=== PATIENT | male | born 1955 | race Caucasian/White ===

== ENCOUNTER 2017-11-05 01:56 | Inpatient (IN) | payer OTHER ==
[~2017-11-05] VITALS: Ht 172.7 cm; Wt 118.0 kg
[2017-11-05] MEDS ORDERED: LEVO25TA4 PO (02:49)
[2017-11-05] MEDS ORDERED: LISI40TA PO (02:49)
[2017-11-05] MEDS ORDERED: SYMB160A INH (02:49)
[2017-11-05] MEDS ORDERED: PRAV80TA2 PO (02:49)
[2017-11-05] MEDS ORDERED: ASPI-516 CHEW (02:49)
[2017-11-05] MEDS ORDERED: PANT40TA3 PO (02:49)
[2017-11-05] MEDS ORDERED: PLAV75TA29 PO (02:49)
[2017-11-05] MEDS ORDERED: BRIM0.155 EACH EYE (02:49)
[2017-11-05] MEDS ORDERED: DILT60TA33 PO (02:49)
[2017-11-05] MEDS ORDERED: TEGR200T PO (02:51)
[2017-11-05] MEDS ORDERED: FURO1TAB60 PO (02:51)
[2017-11-05 02:55] VITALS: BP 129/71; PULSE 75; RESP 20; TEMP 98.2; O2SAT 95
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
[2017-11-05 07:34] VITALS: BP 123/82; PULSE 85; RESP 16; TEMP 98.7; O2SAT 98
[2017-11-05] MEDS ORDERED: ACETAMINOPHEN 325 MG TAB PO PRN (08:00)
[2017-11-05] MEDS ORDERED: BENZTROPINE MESYLATE 2 MG/2 ML VIAL IM PRN (08:00)
[2017-11-05] MEDS ORDERED: BENZTROPINE MESYLATE 1 MG TAB PO PRN (08:00)
[2017-11-05] MEDS ORDERED: hydrOXYzine HCL 50 MG TAB PO PRN (08:00)
[2017-11-05] MEDS ORDERED: MAGNESIUM HYDROXIDE SUSP 30 ML CUP PO PRN (08:00)
[2017-11-05] MEDS ORDERED: NICOTINE 21 MG/24 HR PATCH T-DERMAL PRN (08:00)
[2017-11-05] MEDS ORDERED: ALUMINUM/MAGNESIUM/SIMETH 30 ML CUP PO PRN (08:00)
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
[2017-11-05] MEDS ORDERED: REMOVE OLD NICODERM (NICOTINE) PATCH T-DERMAL PRN (08:30)
[2017-11-05] MEDS: FUROSEMIDE 40 MG TAB PO SCH ×2 (09:00→09:13)
[2017-11-05] MEDS: DILTIAZEM HCL 60 MG TAB PO SCH ×2 (09:11→21:11)
[2017-11-05] MEDS: ASPIRIN 81 MG CHEW TAB CHEW SCH (09:11)
[2017-11-05] MEDS: LISINOPRIL 20 MG TAB PO SCH (09:11)
[2017-11-05] MEDS: BUDESONIDE-FORMOTEROL 160/4.5 MCG INHALER INH SCH ×2 (09:11→21:10)
[2017-11-05] MEDS: PANTOPRAZOLE SOD 40 MG DELAYED RELEASE TAB PO SCH (09:11)
[2017-11-05] MEDS: CLOPIDOGREL 75 MG TAB PO SCH (09:12)
[2017-11-05] MEDS: LEVOTHYROXINE SODIUM 25 MCG TAB PO SCH (09:12)
[2017-11-05] MEDS: carBAMazepine 200 MG TAB PO SCH ×2 (09:12→21:00)
[2017-11-05 11:40] VITALS: BP 125/83; PULSE 81; RESP 18; TEMP 97.6; O2SAT 97
--- NOTE | 2017-11-05 17:03 | HHI.HP ---
HPI Service [facility] Primary Care Physician No Primary Care Physician Admission Diagnosis BPAD Depressed Diagnoses: Chief Complaint: Depression Travel History International Travel<30 Days: No Contact w/Intl Traveler <30 Da: No Traveled to Known Affected Are: No History of Present Illness This is a 62-year-old male who was transferred from [facility] under Gutiérrez act secondary to depression. He has history of bipolar disorder and schizophrenia. He has been admitted to the psychiatry unit under the care of Dr. Peters who requested consultation to evaluate and manage multiple medical conditions. Patient presented to [facility] over the weekend because of shortness of breath. Outside records reviewed he was treated for CHF exacerbation last EF of 40%. He was diuresed. At this time, he feels better denies shortness of breath, palpitations and chest pain. Also history of coronary artery disease status post stent in August on antiplatelets and pravachol. Patient not on beta-johanna reason not clear to him but he has history of asthma which he felt was the reason for recent admission states he received steroids. He has hypertension controlled on CCB, GERD on PPI and hypothyroidism on Synthroid. All other systems reviewed negative Review of Systems Except as stated in HPI: all other systems reviewed are Neg Past Family Social History Past Medical History As previously mentioned Past Surgical History As previously mentioned Reported Medications Reported Meds & Active Scripts Active Reported Lasix (Furosemide) 40 Mg Tab 40 Mg PO DAILY Pantoprazole (Pantoprazole Sodium) 40 Mg Tab 40 Mg PO DAILY Pravastatin 80 Mg Tab 80 Mg PO HS Lisinopril 40 Mg Tab 40 Mg PO DAILY Levothyroxine (Levothyroxine Sodium) 25 Mcg Tab 25 Mcg PO DAILY Aspirin 81 Mg Chew 81 Mg CHEW DAILY Cardizem (Diltiazem HCl) 60 Mg Tab 60 Mg PO Q12HR Plavix (Clopidogrel Bisulfate) 75 Mg Tab 75 Mg PO DAILY Symbicort Inh (Budesonide/Formoterol Fumarate) 160-4.5 Mcg/Act Aero 2 Puff INH Q12HR Brimonidine Opth Drops (Brimonidine Tartrate) 0.15% Soln 1 Drop EACH EYE HS Allergies: Coded Allergies: penicillin V (Verified Allergy, Unknown, Anaphylaxis, 11/05/17) Family History No CAD Social History Does not smoke or drink abuses marijuana Physical Exam Vital Signs Vital Signs Date Time Temp Pulse Resp B/P (MAP) Pulse Ox O2 Delivery O2 Flow Rate FiO2 11/05/17 11:40 97.6 81 18 125/83 (97) 97 11/05/17 11:19 11/05/17 07:34 98.7 85 16 123/82 (96) 98 Room Air 11/05/17 02:55 98.2 75 20 129/71 (90) 95 Room Air Physical Exam GENERAL: This is a well-nourished, well-developed patient, in no apparent distress. SKIN: No rashes, ecchymoses or lesions. Cool and dry. HEAD: Atraumatic. Normocephalic. No temporal or scalp tenderness. EYES: Pupils equal round and reactive. Extraocular motions intact. No scleral icterus. No injection or drainage. ENT: Nose without bleeding, purulent drainage or septal hematoma. Throat without erythema, tonsillar hypertrophy or exudate. Uvula midline. Airway patent. NECK: Trachea midline. No JVD or lymphadenopathy. Supple, nontender, no meningeal signs. CARDIOVASCULAR: Regular rate and rhythm without murmurs, gallops, or rubs. RESPIRATORY: Clear to auscultation. Breath sounds equal bilaterally. No wheezes , rales, or rhonchi. GASTROINTESTINAL: Abdomen soft, non-tender, nondistended. No guarding. MUSCULOSKELETAL: Extremities without clubbing, cyanosis, or edema. No joint tenderness, effusion, or edema noted. No calf tenderness. Negative Homans sign bilaterally. NEUROLOGICAL: Awake and alert. Cranial nerves II through XII intact. Motor and sensory grossly within normal limits. Five out of 5 muscle strength in all muscle groups. Normal speech. Laboratory CBC unremarkable except for slight leukocytosis of 11,000. BMP unremarkable except for creatinine of 1.85 Imaging EKG tracing reviewed showed sinus rhythm with inversion in the katelynn-lateral and inferior leads. No previous EKG tracing for review however EKG report from previous admission showed sinus rhythm no other findings mentioned Caprini VTE Risk Assessment Caprini VTE Risk Assessment: No/Low Risk (score <= 1) Caprini Risk Assessment Model Point Value = 1 Point Value = 2 Point Value = 3 Point Value = 5 Age 41-60 Minor surgery BMI > 25 kg/m2 Swollen legs Varicose veins or History of unexplained or recurrent spontaneous Oral contraceptives or hormone replacement Sepsis (< 1 month) Serious lung disease, including pneumonia (< 1 month) Abnormal pulmonary function Acute myocardial infarction Congestive heart failure (< 1 month) History of inflammatory bowel disease Medical patient at bed rest Age 61-74 Arthroscopic surgery Major open surgery (> 45 min) Laparoscopic surgery (> 45 min) Malignancy Confined to bed (> 72 hours) Immobilizing plaster cast Central venous access Age >= 75 History of VTE Family history of VTE Factor V Leiden Prothrombin [id number] Lupus anticoagulant Anticardiolipin antibodies Elevated serum homocysteine Heparin-induced thrombocytopenia Other congenital or acquired thrombophilia Stroke (< 1 month) Elective arthroplasty Hip, pelvis, or leg fracture Acute spinal cord injury (< 1 month) Prophylaxis Regimen Total Risk Factor Score Risk Level Prophylaxis Regimen 0-1 Low Early ambulation 2 Moderate Order ONE of the following: *Sequential Compression Device (SCD) *Heparin 5000 units SQ BID 3-4 Higher Order ONE of the following medications: *Heparin 5000 units SQ TID *Enoxaparin/Lovenox 40 mg SQ daily (WT < 150 kg, CrCl > 30 mL/min) *Enoxaparin/Lovenox 30 mg SQ daily (WT < 150 kg, CrCl > 10-29 mL/min) *Enoxaparin/Lovenox 30 mg SQ BID (WT < 150 kg, CrCl > 30 mL/min) AND/OR *Sequential Compression Device (SCD) 5 or more Highest Order ONE of the following medications: *Heparin 5000 units SQ TID (Preferred with Epidurals) *Enoxaparin/Lovenox 40 mg SQ daily (WT < 150 kg, CrCl > 30 mL/min) *Enoxaparin/Lovenox 30 mg SQ daily (WT < 150 kg, CrCl > 10-29 mL/min) *Enoxaparin/Lovenox 30 mg SQ BID (WT < 150 kg, CrCl > 30 mL/min) AND *Sequential Compression Device (SCD) Assessment and Plan Assessment and Plan This is a 62-year-old male who was transferred from [facility] under Gutiérrez act secondary to depression. He has history of bipolar disorder and schizophrenia. He has been admitted to the psychiatry unit under the care of Dr. Peters who requested consultation to evaluate and manage multiple medical conditions. CHF exacerbation last EF of 40%. He was diuresed. At this time, he feels better denies shortness of breath, palpitations and chest pain. Ct Lasix. CHF education, I/O and monitor wt and renal function Coronary artery disease status post stent in August on antiplatelets and pravachol. Patient not on beta-johanna reason not clear to him but he has history of asthma which he felt was the reason for recent admission states he received steroids. EKG tracing reviewed showed sinus rhythm with inversion in the katelynn-lateral and inferior leads. No previous EKG tracing for review however EKG report from previous admission showed sinus rhythm no other findings mentioned. Request records Hypertension controlled on CCB, GERD on PPI and hypothyroidism on Synthroid. DVT proph pt ambulatory Aj Ledesma MD Nov 05, 2017 17:03
[2017-11-05 17:58] VITALS: BP 144/90; PULSE 87; RESP 17; TEMP 98.1; O2SAT 97
[2017-11-05] MEDS ORDERED: PRAVASTATIN SOD 80 MG TAB PO SCH (21:00)
[2017-11-05] MEDS ORDERED: traZODone HCL 50 MG TAB PO PRN (21:00)
[2017-11-05] MEDS ORDERED: BRIMONIDINE TARTRATE 0.15% OPHT SOLN 5 ML BTL EACH EYE SCH (21:00)
[2017-11-06 05:21] VITALS: BP 130/87; PULSE 85; RESP 18; TEMP 98.1; O2SAT 95
[2017-11-06] MEDS: LEVOTHYROXINE SODIUM 25 MCG TAB PO SCH (05:59)
[2017-11-06 07:50] LABS: AUTOMATED NEUTROPHIL # 3.2 TH/MM3 (1.8-7.7); BASOPHIL # 0.1 TH/MM3 (0-0.2); BASOPHIL % 1.1 % (0.0-2.0); EOSINOPHIL # 0.2 TH/MM3 (0-0.4); EOSINOPHIL % 2.9 % (0.0-4.0); HEMATOCRIT 46.6 % (39.0-51.0); HEMOGLOBIN 15.4 GM/DL (13.0-17.0); LYMPH % 25.8 % (9.0-44.0); LYMPHOCYTE # 1.4 TH/MM3 (1.0-4.8); MEAN CELL VOLUME 83.6 FL (80.0-100.0); MEAN CORPUSCULAR HEMOGLOBIN 27.6 PG (27.0-34.0); MEAN PLATELET VOLUME 7.7 FL (7.0-11.0); MONO % 10.8 % (0.0-8.0); MONOCYTE # 0.6 TH/MM3 (0-0.9); NEUT % 59.4 % (16.0-70.0); PLATELET COUNT 281 TH/MM3 (150-450); RED BLOOD COUNT 5.57 MIL/MM3 (4.50-5.90); RED CELL DISTRIBUTION WIDTH 15.5 % (11.6-17.2); WHITE BLOOD COUNT 5.5 TH/MM3 (4.0-11.0)
[2017-11-06] MEDS: LISINOPRIL 20 MG TAB PO SCH (08:13)
[2017-11-06] MEDS: DILTIAZEM HCL 60 MG TAB PO SCH (08:13)
[2017-11-06] MEDS: ASPIRIN 81 MG CHEW TAB CHEW SCH (08:14)
[2017-11-06] MEDS: CLOPIDOGREL 75 MG TAB PO SCH (08:14)
[2017-11-06] MEDS: FUROSEMIDE 40 MG TAB PO SCH (08:14)
[2017-11-06] MEDS: PANTOPRAZOLE SOD 40 MG DELAYED RELEASE TAB PO SCH (08:14)
[2017-11-06 08:17] LABS: ALT (GPT) 34 U/L (12-78); CHOLESTEROL 127 MG/DL (120-200); TRIGLYCERIDES 154 MG/DL (42-150)
[2017-11-06] MEDS: carBAMazepine 200 MG TAB PO SCH (08:18)
[2017-11-06] MEDS: BUDESONIDE-FORMOTEROL 160/4.5 MCG INHALER INH SCH (08:20)
[2017-11-06 08:26] LABS: ALBUMIN 3.8 GM/DL (3.4-5.0); ALKALINE PHOSPHATASE 144 U/L (45-117); AST (GOT) 39 U/L (15-37); BICARBONATE 23.6 MEQ/L (21.0-32.0); BLOOD UREA NITROGEN 24 MG/DL (7-18); CALCIUM 8.9 MG/DL (8.5-10.1); CARBAMAZEPINE (TEGRETOL) 9.6 MCG/ML (4.0-12.0); CHLORIDE 107 MEQ/L (98-107); CHOLESTEROL/ HDL RATIO 4.03 RATIO; CREATININE 1.89 MG/DL (0.60-1.30); GLOMERULAR FILTRATION RATE 37 ML/MIN (>89); GLUCOSE,RANDOM 106 MG/DL (74-106); HDL CHOLESTEROL 31.5 MG/DL (40.0-60.0); LDL CHOLESTEROL 65 MG/DL (0-99); SODIUM (NA) 139 MEQ/L (136-145); TOTAL BILIRUBIN ADULT 0.4 MG/DL (0.2-1.0); TOTAL PROTEIN 7.5 GM/DL (6.4-8.2)
[2017-11-06] MEDS ORDERED: PNEUMOCOCCAL POLYVALENT INJ 25 MCG/0.5 ML SYR IM ONE (10:00)
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
--- NOTE | 2017-11-06 14:32 | HHI.PR ---
Subjective Remarks F/U CAD. Abnormal EKG with new T inversion in the inferior leads from old EKG. Denies CP, SOB and palpitations. Negative stress test 2 mos ago. Advised rpt stress test op as he is signing out AMA. To F/U PCp and cards kaylee Objective Vitals Vital Signs Date Time Temp Pulse Resp B/P (MAP) Pulse Ox O2 Delivery O2 Flow Rate FiO2 11/06/17 05:21 98.1 85 18 130/87 (101) 95 11/05/17 17:58 98.1 87 17 144/90 (108) 97 I/O 11/05/17 11/05/17 11/05/17 11/06/17 11/06/17 11/06/17 07:00 15:00 23:00 07:00 15:00 23:00 Intake Total 400 ml Balance 400 ml Intake Oral 400 ml # Voids 1 Result Diagram: 11/06/1771611/06/17716 Objective Remarks GENERAL: This is a well-nourished, well-developed patient, in no apparent distress. SKIN: No rashes, ecchymoses or lesions. Cool and dry. CARDIOVASCULAR: Regular rate and rhythm without murmurs, gallops, or rubs. RESPIRATORY: Clear to auscultation. Breath sounds equal bilaterally. No wheezes , rales, or rhonchi. GASTROINTESTINAL: Abdomen soft, non-tender, nondistended. No guarding. MUSCULOSKELETAL: Extremities without clubbing, cyanosis, or edema. No joint tenderness, effusion, or edema noted. No calf tenderness. Negative Homans sign bilaterally. NEUROLOGICAL: Awake and alert. Cranial nerves II through XII intact. Motor and sensory grossly within normal limits. Five out of 5 muscle strength in all muscle groups. Normal speech. A/P Assessment and Plan This is a 62-year-old male who was transferred from [facility] under Gutiérrez act secondary to depression. He has history of bipolar disorder and schizophrenia. He has been admitted to the psychiatry unit under the care of Dr. Peters who requested consultation to evaluate and manage multiple medical conditions. CHF exacerbation last EF of 40%. He was diuresed. At this time, he feels better denies shortness of breath, palpitations and chest pain. Ct Lasix. CHF education, I/O and monitor wt and renal function Coronary artery disease status post stent in August on antiplatelets and pravachol. Patient not on beta-johanna reason not clear to him but he has history of asthma which he felt was the reason for recent admission states he received steroids. Op with PCP pt should be on BB. EKG tracing reviewed showed sinus rhythm with inversion in the katelynn-lateral and inferior leads(new). Denies CP, SOB and palpitations. Negative stress test 2 mos ago. Advised rpt stress test op as he is signing out AMA. To F/U PCp and cards kaylee Hypertension controlled on CCB, GERD on PPI and hypothyroidism on Synthroid. Possible CKD stage 3. Nonoliguric. Avoid nephrotoxins Mild ASt elevation. On statin and tegretol. Close monitoring DVT proph pt ambulatory Aj Ledesma MD Nov 06, 2017 14:32
[2017-11-06 15:45] LABS: HEMOGLOBIN A1C 5.7 % (4.3-6.0)
== END 2017-11-06 16:25 | disposition left against medical advice (07) | DRG 881 ==
LOC: NEPD 01:56 → NEDA 07:57 → H260 11:10
PROVIDERS: ADMIT Psychiatry & Neurology Psychiatry; ATTEND Psychiatry & Neurology Psychiatry
DX: F43.21 Adjustment disorder with depressed mood (principal); I13.0 Hypertensive heart and chronic kidney disease with heart failure and stage 1 through stage 4 chronic kidney disease, or unspecified chronic kidney disease; R45.851 Suicidal ideations; I50.9 Heart failure, unspecified; E11.22 Type 2 diabetes mellitus with diabetic chronic kidney disease; F31.32 Bipolar disorder, current episode depressed, moderate; F20.9 Schizophrenia, unspecified; I25.10 Atherosclerotic heart disease of native coronary artery without angina pectoris; E66.9 Obesity, unspecified; J45.909 Unspecified asthma, uncomplicated; G47.30 Sleep apnea, unspecified; E11.65 Type 2 diabetes mellitus with hyperglycemia; K21.9 Gastro-esophageal reflux disease without esophagitis; E03.9 Hypothyroidism, unspecified; N18.3 Chronic kidney disease, stage 3 (moderate); F17.210 Nicotine dependence, cigarettes, uncomplicated; Z68.39 Body mass index [BMI] 39.0-39.9, adult; Z88.0 Allergy status to penicillin; Z91.14 Patient's other noncompliance with medication regimen; Z91.5 Personal history of self-harm; Z95.5 Presence of coronary angioplasty implant and graft
CPT/HCPCS: 80053; 80061; 80156; 83036; 84443; 85025; 93005; 99285